=== PATIENT | male | born 1955 | race Caucasian/White ===

== ENCOUNTER 2024-08-21 17:26 | Inpatient (IN) | payer MEDICARE ==
[~2024-08-21] VITALS: Ht 188 cm; Wt 86.6 kg
[2024-08-21] MEDS ORDERED: ONDANSETRON HCL/PF 4 MG/2 ML VIAL ONE (18:03)
[2024-08-21] MEDS ORDERED: MORPHINE SULFATE INJ 4 MG/ML DISP.SYRIN ONE (18:03)
[2024-08-21] MEDS ORDERED: ASPIRIN 325 MG TABLET ONE (18:03)
[2024-08-21 18:05] LABS: BASOPHILS # (AUTO) 0.1 K/uL (0.0-0.2); BASOPHILS % (AUTO) 0.9 % (0.0-2.0); EOSINOPHILS # (AUTO) 0.2 K/uL (0.0-0.7); EOSINOPHILS % (AUTO) 1.3 % (0.0-6.0); HEMATOCRIT 46 % (39-51); HEMOGLOBIN 15.2 g/dL (13.5-17.5); LYMPHOCYTES # (AUTO) 2.3 K/uL (0.8-4.8); LYMPHOCYTES % (AUTO) 16.2 % (20.0-44.0); MEAN CORPUSCULAR HEMOGLOBIN 27 PG (26.0-33.0); MEAN CORPUSCULAR HGB CONC 33 g/dl (31.0-36.0); MEAN CORPUSCULAR VOLUME 80 fL (80-96); MONOCYTES # (AUTO) 1.4 K/uL (0.1-1.30); NEUTROPHILS % (AUTO) 71.6 % (43.0-81.0); PLATELET COUNT (AUTO) 450 K/uL (150-450); RED BLOOD CELL COUNT(AUTO) 5.76 MIL/uL (4.5-6.0); RED CELL DISTRIBUTION WIDTH 15.5 % (11.5-15.0); WHITE BLOOD COUNT (AUTO) 13.9 K/uL (4.3-11.0)
[2024-08-21] MEDS: MORPHINE SULFATE INJ 2 MG/ML DISP.SYRIN IV ONE (18:10)
[2024-08-21] MEDS: ONDANSETRON HCL/PF 4 MG/2 ML VIAL IVP ONE (18:11)
[2024-08-21] MEDS: ASPIRIN 325 MG TABLET PO ONE (18:12)
[2024-08-21 18:30] LABS: INR 0.96 (0.91-1.10); PARTIAL THROMBOPLASTIN TIME 27.9 SEC (24.3-34.3); PROTHROMBIN TIME 10.2 SECS (9.2-11.1)
[2024-08-21 18:32] LABS: D-DIMER 5.36 mg/L(FEU (0.17-0.50)
[2024-08-21 18:37] LABS: CALCIUM, SERUM 9.2 mg/dL (8.5-10.1); CARBON DIOXIDE 25 mmol/L (21-32); CHLORIDE 104 mmol/L (98-107); CREATININE 1.1 mg/dL (0.6-1.3); GLUCOSE 102 mg/dL (74-106); POTASSIUM 3.8 mmol/L (3.5-5.1); SODIUM SERUM 140 mmol/L (136-145); UREA NITROGEN, BLOOD 18 mg/dL (7-18)
[2024-08-21 18:50] LABS: ALANINE AMINOTRANSFERASE 22 U/L (12-78); ALBUMIN 2.7 g/dL (3.4-5.0); ALKALINE PHOSPHATASE 137 U/L (46-116); ASPARTATE AMINOTRANSFERASE 24 U/L (15-37); BILIRUBIN,DIRECT 0.1 mg/dL (0.0-0.2); BILIRUBIN,TOTAL 0.4 mg/dL (0.2-1.0); NT-PRO BNP 1910 pg/mL (0-125); TOTAL PROTEIN, SERUM 7.6 g/dL (6.4-8.2)
[2024-08-21 18:53] LABS: APPEARANCE,URINE SLIGHTLY CLOUDY (CLEAR); BILIRUBIN,URINE NEGATIVE (NEGATIVE); BLOOD, URINE 3+ Ery/uL (NEGATIVE); COLOR,URINE YELLOW (YELLOW); KETONES,URINE NEGATIVE (NEGATIVE); LEUKOCYTE ESTERASE ,URINE 2+ (NEGATIVE); NITRITE, URINE POSITIVE (NEGATIVE); PH,URINE 7.5 (5.0-8.0); PROTEIN,URINE 2+ mg/dl (NEGATIVE); UGLUCOSE NEGATIVE (NEGATIVE)
[2024-08-21 19:14] LABS: ADD URINE CULTURE YES; BACTERIA,URINE Many /HPF (None Seen); RBC,URINE 21-50 /HPF (0-2); WBC,URINE 21-50 /HPF (0-3)
[2024-08-21 19:15] LABS: SQUAMOUS EPITHELIAL CELL,UR Few /HPF (None Seen)
[2024-08-21] MEDS ORDERED: IOHEXOL-350 100 ML VIAL IV ONE (19:50)
[2024-08-21] MEDS ORDERED: IV NS 0.9% 250 ML IV ONE (19:50)
[2024-08-21] MEDS ORDERED: CEFTRIAXONE 1GM BAG (ER ONLY) 50 ML IV ONE (20:07)
[2024-08-21] MEDS: CEFTRIAXONE 1GM BAG (ER ONLY) 1 GM/50 ML PIGGYBACK IV ONE (20:12)
[2024-08-21] MEDS ORDERED: hydrALAZINE HCL IV 20 MG VIAL IV PRN (22:00)
[2024-08-21] MEDS ORDERED: MORPHINE SULFATE INJ 4 MG/ML DISP.SYRIN IV PRN (22:00)
[2024-08-21] MEDS ORDERED: ACETAMINOPHEN 325 MG TABLET PO PRN (22:00)
[2024-08-21] MEDS ORDERED: ONDANSETRON HCL/PF 4 MG/2 ML VIAL IVP PRN (22:00)
[2024-08-21 22:30] VITALS: BP 133/87; TEMP 98.4; O2SAT 96
[2024-08-21] MEDS: MORPHINE SULFATE INJ 2 MG/ML DISP.SYRIN IV PRN (22:49)
[2024-08-22] VITALS: BP 134/81; TEMP 98.1; O2SAT 97
[2024-08-22 04:00] VITALS: BP 143/77; TEMP 97.9; O2SAT 96
[2024-08-22 07:00] LABS: ALBUMIN 2.6 g/dL (3.4-5.0); BILIRUBIN,TOTAL 0.5 mg/dL (0.2-1.0); CALCIUM, SERUM 9.4 mg/dL (8.5-10.1); CREATININE 1.1 mg/dL (0.6-1.3); MAGNESIUM 2.2 mg/dL (1.8-2.4); PHOSPHORUS 4.2 mg/dL (2.5-4.9); POTASSIUM 4.3 mmol/L (3.5-5.1); TOTAL PROTEIN, SERUM 7.5 g/dL (6.4-8.2)
[2024-08-22 07:24] LABS: BASOPHILS # (AUTO) 0.1 K/uL (0.0-0.2); BASOPHILS % (AUTO) 0.6 % (0.0-2.0); EOSINOPHILS % (AUTO) 0.3 % (0.0-6.0); HEMATOCRIT 44 % (39-51); HEMOGLOBIN 14.5 g/dL (13.5-17.5); LYMPHOCYTES # (AUTO) 1.8 K/uL (0.8-4.8); MEAN CORPUSCULAR HEMOGLOBIN 27 PG (26.0-33.0); MEAN CORPUSCULAR HGB CONC 33 g/dl (31.0-36.0); MEAN CORPUSCULAR VOLUME 81 fL (80-96); MONOCYTES # (AUTO) 1.4 K/uL (0.1-1.30); MONOCYTES % (AUTO) 12.1 % (2.0-12.0); NEUTROPHILS # (AUTO) 8.6 K/uL (1.8-8.9); PLATELET COUNT (AUTO) 419 K/uL (150-450); RED CELL DISTRIBUTION WIDTH 16.1 % (11.5-15.0)
[2024-08-22 08:00] VITALS: BP 124/88; TEMP 98.4; O2SAT 94
[2024-08-22] MEDS: HEPARIN SODIUM, PORCINE 5000 UNITS/1 ML VIAL SQ SCH (08:22)
[2024-08-22 09:43] LABS: CHOLESTEROL 175 mg/dL (<200); HDL CHOLESTEROL 48 mg/dL (40-60); LDL 116 mg/dL (0-99); TRIGLYCERIDES 86 mg/dL (30-150)
[2024-08-22] MEDS: THERAHONEY GEL 1.5 OZ TUBE TP SCH (10:51)
[2024-08-22 12:09] VITALS: BP 142/99; TEMP 98.4; O2SAT 94
[2024-08-22] MEDS: METOPROLOL TARTRATE 50 MG TABLET PO SCH (12:15)
[2024-08-22] MEDS ORDERED: IOHEXOL-350 100 ML VIAL IV ONE (13:29)
[2024-08-22] MEDS ORDERED: CT SWABBABLE VALVE TRANS SET 1 EA INFUS.SET MC ONE (13:29)
[2024-08-22] MEDS ORDERED: NITROGLYCERIN 0.4 MG/TAB BOTTLE ONE (13:29)
[2024-08-22] MEDS ORDERED: IV NS 0.9% 250 ML IV ONE (13:29)
[2024-08-22] MEDS ORDERED: METOPROLOL TARTRATE INJ 5 MG/5 ML AMPUL ONE ×2 (13:29→14:12)
[2024-08-22] MEDS: METOPROLOL TARTRATE INJ 5 MG/5 ML AMPUL IVP PRN (14:05)
[2024-08-22] MEDS: NITROGLYCERIN 0.4 MG/TAB BOTTLE SL ONE (14:17)
[2024-08-22 16:18] VITALS: BP 116/87; TEMP 98.2; O2SAT 95
[2024-08-22 20:00] VITALS: BP 140/95; TEMP 98.2; O2SAT 95
[2024-08-22] MEDS: CEFTRIAXONE 1 G in IV D5W 50 ML IV SCH (20:26)
[2024-08-23] VITALS: BP 150/90; TEMP 98.1; O2SAT 94
[2024-08-23 04:00] VITALS: BP 140/89; TEMP 97.9; O2SAT 96
[2024-08-23 07:30] VITALS: BP 139/84; TEMP 98.4; O2SAT 95
[2024-08-23] MEDS: ATORVASTATIN 40 MG TABLET PO SCH (09:26)
[2024-08-23] MEDS: ASPIRIN 81 MG TAB.CHEW PO SCH (09:26)
[2024-08-23] MEDS: VALSARTAN 80 MG TABLET PO SCH (09:27)
[2024-08-23] MEDS: METOPROLOL SUCCINATE 50 MG TAB.SR.24H PO SCH (09:54)
[2024-08-23] MEDS: APIXABAN 5 MG TABLET PO SCH (10:00)
[2024-08-23 16:28] VITALS: BP 147/89; TEMP 98.1; O2SAT 96
[2024-08-23 20:00] VITALS: BP 140/90; TEMP 98.2; O2SAT 95
[2024-08-24 06:51] LABS: BASOPHILS # (AUTO) 0.1 K/uL (0.0-0.2); BASOPHILS % (AUTO) 0.9 % (0.0-2.0); EOSINOPHILS # (AUTO) 0.3 K/uL (0.0-0.7); EOSINOPHILS % (AUTO) 3.4 % (0.0-6.0); HEMATOCRIT 42 % (39-51); LYMPHOCYTES # (AUTO) 2.4 K/uL (0.8-4.8); LYMPHOCYTES % (AUTO) 27.1 % (20.0-44.0); MEAN CORPUSCULAR HEMOGLOBIN 26 PG (26.0-33.0); MEAN CORPUSCULAR HGB CONC 33 g/dl (31.0-36.0); MEAN CORPUSCULAR VOLUME 80 fL (80-96); MONOCYTES # (AUTO) 0.7 K/uL (0.1-1.30); MONOCYTES % (AUTO) 8.4 % (2.0-12.0); NEUTROPHILS # (AUTO) 5.3 K/uL (1.8-8.9); NEUTROPHILS % (AUTO) 60.2 % (43.0-81.0); PLATELET COUNT (AUTO) 486 K/uL (150-450); RED BLOOD CELL COUNT(AUTO) 5.28 MIL/uL (4.5-6.0); RED CELL DISTRIBUTION WIDTH 16.1 % (11.5-15.0); WHITE BLOOD COUNT (AUTO) 8.8 K/uL (4.3-11.0)
[2024-08-24 07:19] LABS: CALCIUM, SERUM 8.7 mg/dL (8.5-10.1); CREATININE 1.1 mg/dL (0.6-1.3); MAGNESIUM 2.2 mg/dL (1.8-2.4); PHOSPHORUS 3.5 mg/dL (2.5-4.9); POTASSIUM 3.7 mmol/L (3.5-5.1)
[2024-08-24 07:30] VITALS: BP 155/105; TEMP 98.2; O2SAT 96
[2024-08-24 10:10] VITALS: BP 140/91
[2024-08-24 16:30] VITALS: BP 143/84; TEMP 98.2; O2SAT 96
[2024-08-24 20:00] VITALS: BP 135/84; TEMP 98.6; O2SAT 94
[2024-08-25 08:00] VITALS: BP 151/91; TEMP 98.2; O2SAT 95
[2024-08-25 09:28] VITALS: BP 126/88
[2024-08-25] MEDS ORDERED: ASPI-1169 PO (10:49)
[2024-08-25] MEDS ORDERED: LEVO500T90 PO (10:49)
[2024-08-25] MEDS ORDERED: ATOR40TA PO (10:49)
[2024-08-25] MEDS ORDERED: VALS80TA31 PO (10:49)
[2024-08-25] MEDS ORDERED: METO50TA7 PO (10:49)
== END 2024-08-25 15:30 | disposition home health service (06) | DRG 871 ==
LOC: ER 17:47 → TELE 20:29 → MED 08-23 14:46
PROVIDERS: ADMIT Internal Medicine; ATTEND Internal Medicine
DX: A41.59 Other Gram-negative sepsis (principal); I50.43 Acute on chronic combined systolic (congestive) and diastolic (congestive) heart failure; L89.153 Pressure ulcer of sacral region, stage 3; R53.2 Functional quadriplegia; E44.1 Mild protein-calorie malnutrition; N39.0 Urinary tract infection, site not specified; I69.351 Hemiplegia and hemiparesis following cerebral infarction affecting right dominant side; E44.0 Moderate protein-calorie malnutrition; E88.09 Other disorders of plasma-protein metabolism, not elsewhere classified; Z86.718 Personal history of other venous thrombosis and embolism; Z71.6 Tobacco abuse counseling; F17.290 Nicotine dependence, other tobacco product, uncomplicated; J44.9 Chronic obstructive pulmonary disease, unspecified; I25.10 Atherosclerotic heart disease of native coronary artery without angina pectoris; I11.0 Hypertensive heart disease with heart failure; I71.22 Aneurysm of the aortic arch, without rupture; I73.9 Peripheral vascular disease, unspecified; Z95.820 Peripheral vascular angioplasty status with implants and grafts; L98.8 Other specified disorders of the skin and subcutaneous tissue
CPT/HCPCS: 36415; 71045-TC; 75574; 80048-TC; 80053-TC; 80061-TC; 80076-TC; 81001; 83605-TC; 83735-TC; 83880; 84100-TC; 84484-TC; 85025-TC; 85378-TC; 85730-TC; 87040-TC; 87081-TC; 87086-TC; 87186-TC; 93307-TC; 93970-TC; 97110-TC; 97112-TC; 97530-TC; 97535-TC; A4223; G0378; J0696; J1644; J2270; J2405; J3490; J7050; J7060; Q9967

== ENCOUNTER 2025-02-22 15:09 | Inpatient (IN) ==
[~2025-02-22] VITALS: Ht 188 cm; Wt 86.2 kg
[~2025-02-22 15:09] MED LIST: ASPI-1169 PO; ATOR40TA PO; LEVO500T90 PO; METO50TA7 PO; VALS80TA31 PO
[2025-02-22] MEDS: IV NS 0.9% 1,000 ML BAG IV ONE (15:30)
[2025-02-22 15:48] LABS: PLATELET COUNT (AUTO) 290 K/uL (150-450); RED BLOOD CELL COUNT(AUTO) 4.62 MIL/uL (4.5-6.0); RED CELL DISTRIBUTION WIDTH 15.7 % (11.5-15.0); WHITE BLOOD COUNT (AUTO) 8.6 K/uL (4.3-11.0)
[2025-02-22 15:56] LABS: CALCIUM, SERUM 8.2 mg/dL (8.5-10.1); CREATININE 1.2 mg/dL (0.6-1.3); SODIUM SERUM 141 mmol/L (136-145); UREA NITROGEN, BLOOD 19 mg/dL (7-18)
[2025-02-22 15:58] LABS: ALCOHOL, BLOOD < 10 mg/dL (0-10)
[2025-02-22] MEDS ORDERED: IV NS 0.9% 250 ML IV ONE (16:26)
[2025-02-22] MEDS ORDERED: IOHEXOL-350 100 ML VIAL IV ONE (16:26)
[2025-02-22] MEDS ORDERED: ATOR40TA PO (18:15)
[2025-02-22] MEDS ORDERED: ASPI-1420 PO (18:15)
[2025-02-22] MEDS ORDERED: CARV6.252 PO (18:15)
[2025-02-22] MEDS ORDERED: METO-357 PO (18:15)
[2025-02-22] MEDS: POTASSIUM CHLORIDE 20 MEQ TAB.PRT.SR PO ONE (19:59)
[2025-02-22] MEDS ORDERED: MAG HYDROX/AL HYDROX/SIMETH 30 ML UDC PO PRN (20:00)
[2025-02-22] MEDS ORDERED: ONDANSETRON HCL/PF 4 MG/2 ML VIAL IVP PRN (20:00)
[2025-02-22] MEDS ORDERED: Z GUARD REMEDY 4 OZ OINT TP PRN (20:00)
[2025-02-22] MEDS ORDERED: ACETAMINOPHEN 325 MG TABLET PO PRN (20:00)
[2025-02-22] MEDS ORDERED: MAGNESIUM HYDROXIDE 30 ML UDC PO PRN (20:00)
[2025-02-22 22:38] LABS: BARBITURATE, URINE NEGATIVE (NEGATIVE); BENZODIAZEPINE, URINE NEGATIVE (NEGATIVE); CANNABINOID, URINE NEGATIVE (NEGATIVE); COCCAINE, URINE NEGATIVE (NEGATIVE); OPIATE, URINE NEGATIVE (NEGATIVE)
[2025-02-22 22:39] LABS: AMPHETAMINE, URINE POSITIVE (NEGATIVE)
[2025-02-23] VITALS: BP 133/79; TEMP 97.5; O2SAT 97
[2025-02-23] MEDS: IV NS 0.9% 1,000 ML IV SCH (01:11)
[2025-02-23 04:00] VITALS: BP 153/81; TEMP 98.2; O2SAT 95
[2025-02-23 06:00] LABS: PLATELET COUNT (AUTO) 282 K/uL (150-450); RED BLOOD CELL COUNT(AUTO) 5.27 MIL/uL (4.5-6.0); RED CELL DISTRIBUTION WIDTH 16.1 % (11.5-15.0); WHITE BLOOD COUNT (AUTO) 9.6 K/uL (4.3-11.0)
[2025-02-23 06:06] LABS: CALCIUM, SERUM 8.7 mg/dL (8.5-10.1); CREATININE 1.1 mg/dL (0.6-1.3); PHOSPHORUS 3.5 mg/dL (2.5-4.9); SODIUM SERUM 145.0 mmol/L (136-145); UREA NITROGEN, BLOOD 16.0 mg/dL (7-18)
[2025-02-23 08:00] VITALS: BP 134/69; TEMP 97.1; O2SAT 96
[2025-02-23] MEDS ORDERED: IV NS 0.9% 1,000 ML IV PRN (08:30)
[2025-02-23] MEDS: ATORVASTATIN 40 MG TABLET PO SCH (10:23)
[2025-02-23 12:00] VITALS: BP 119/69; TEMP 98.1; O2SAT 97
[2025-02-23] MEDS ORDERED: CARVEDILOL 6.25 MG TABLET PO SCH (17:00)
[2025-02-24] MEDS ORDERED: ASPIRIN EC 81 MG TABLET.DR PO SCH (09:00)
[2025-02-24] MEDS ORDERED: METOPROLOL SUCCINATE 50 MG TAB.SR.24H PO SCH (09:00)
== END 2025-02-23 14:35 | disposition home or self-care (01) | DRG 641 ==
LOC: ER 15:12 → TELE1 22:53
PROVIDERS: ADMIT Internal Medicine; ATTEND Internal Medicine
DX: E86.0 Dehydration (principal); I69.951 Hemiplegia and hemiparesis following unspecified cerebrovascular disease affecting right dominant side; E87.6 Hypokalemia; I71.20 Thoracic aortic aneurysm, without rupture, unspecified; E78.5 Hyperlipidemia, unspecified; I10 Essential (primary) hypertension; F17.200 Nicotine dependence, unspecified, uncomplicated; Z79.899 Other long term (current) drug therapy; Z74.01 Bed confinement status; Z79.82 Long term (current) use of aspirin; R79.89 Other specified abnormal findings of blood chemistry; Z98.890 Other specified postprocedural states; Z95.820 Peripheral vascular angioplasty status with implants and grafts
CPT/HCPCS: 36415; 71045-TC; 80048-TC; 83735-TC; 84100-TC; 84443-TC; 84484-TC; 85025-TC; 87081-TC; 93307-TC; G0378; G0480; J7030; J7050; Q9967